=== PATIENT | male | born 1940 | race Caucasian/White ===

== ENCOUNTER 2017-02-20 12:45 | Emergency (ER) | payer MEDICARE, OTHER ==
[~2017-02-20 12:45] MED LIST: ALTA2.5 PO; ASAB PO; AT25 PO; BUM1 PO; BUM2 PO; C5; C5 PO; COREG12 PO; COREG3 PO; COREG6 PO; COUMADIN4 MG PO; DALMANE30 MG OR; DIL1INJ; DILAUDID PAIN PUMP; DILAUDID PAIN PUMP IT; DSS PO; ENDOCET1 TA3 PO; ENULOSE PO; EZFE 200200 MG PO; FOLINIC PLUS; HALF81 PO; HEMOCYTE324 MG PO; K-TABS10 MEQ PO; KDUR20 PO; KLOR-CON 1010 MEQ PO; KLOR-CON M2020 MEQ PO; L40 PO; LACT30UDL PO; LAMICTAL10 PO; METHADOSE10 MG PO; MIRALAXPKT PO; NEUR300 PO; PCET PO; PEP20 PO; PERCOCET1 TA4 PO; PROAIR HFA INH; PROVHFA INH; ROBITUSSIN PO; SENTAB PO; SONATA PO; SPIRIVA INH; T PO; VALIUM10 MG PO; VITC500 PO; VOLT75 PO; WELLXL150 PO; WELLXL300 PO; XANAX1 MG PO; ZOFRAN ODT4 MG PO; [UNRECOGNIZED DRUG - CODE]
[2017-02-20] MEDS ORDERED: NEUR300 PO (14:12)
[2017-02-20] MEDS ORDERED: SENTAB PO (14:12)
[2017-02-20] MEDS ORDERED: WELLXL150 PO (14:14)
[2017-02-20] MEDS ORDERED: PERCOCET 10/3251 TAB PO (14:14)
[2017-02-20] MEDS ORDERED: COREG12 PO (14:15)
[2017-02-20] MEDS ORDERED: KLOR-CON M2020 MEQ PO (14:16)
[2017-02-20] MEDS ORDERED: BUM2 PO (14:16)
[2017-02-20] MEDS ORDERED: ENULOSE PO (14:16)
[2017-02-20] MEDS ORDERED: REXULTI PO (14:17)
[2017-02-20] MEDS ORDERED: FLOMAX4 PO (14:17)
[2017-02-20] MEDS ORDERED: SPIRIVA INH (14:18)
[2017-02-20] MEDS ORDERED: COUMADIN6 MG PO (14:18)
[2017-02-20] MEDS ORDERED: VALIUM10 MG PO (14:18)
[2017-02-20] MEDS ORDERED: PROAIR HFA INH (14:19)
[2017-02-20] MEDS ORDERED: DILAUDID PUMP (14:20)
== END 2017-02-20 15:10 | disposition short-term general hospital (02) ==
LOC: ER 12:45
DX: S12.110A Anterior displaced Type II dens fracture, initial encounter for closed fracture (principal); I11.0 Hypertensive heart disease with heart failure; I50.9 Heart failure, unspecified; I25.2 Old myocardial infarction; I48.91 Unspecified atrial fibrillation; F31.9 Bipolar disorder, unspecified; Z87.891 Personal history of nicotine dependence; Z88.5 Allergy status to narcotic agent; Z79.899 Other long term (current) drug therapy; Z79.01 Long term (current) use of anticoagulants
CPT/HCPCS: 72125; 99284